=== PATIENT | male | born 1945 | race Caucasian/White ===

== ENCOUNTER 2023-10-04 08:42 | Emergency (ER) | payer MEDICARE ==
[~2023-10-04] VITALS: Wt 99.8 kg
[2023-10-04] MEDS ORDERED: HEPARIN SODIUM 250 ML IV SCH (08:50)
[2023-10-04] MEDS ORDERED: Clopidogrel Hydrogen Sulfate 75 MG TAB PO ONE (08:50)
[2023-10-04 09:03] LABS: BASO % 0.3 % (0.0-1.0); EOS # 0.2 10*3/uL (0.0-0.4); EOS % 1.4 % (1.0-4.0); HEMATOCRIT 43.9 % (42.0-52.0); LYMPH # 4.6 10*3/uL (1.3-4.4); LYMPH % 40.2 % (27.0-41.0); MEAN CELL VOLUME 103.8 fl (80.0-94.0); MEAN CORPUSCULAR HGB 33.1 pg (27.0-31.0); MEAN CORPUSCULAR HGB CONC 31.9 g/dl (33.0-37.0); MEAN PLATELET VOLUME 11.4 fl (9.6-12.3); MONO # 0.9 10*3/uL (0.1-1.0); MONO % 7.7 % (3.0-9.0); NEUT # 5.7 10*3/uL (2.3-7.9); NEUT % 50.1 % (47.0-73.0); NUCLEATED RED BLOOD CELL 0.1 10*3/uL (0.0-0.0); NUCLEATED RED BLOOD CELL 0.6 % (0.0-0.0); PLATELET COUNT AUTOMATED 194 10*3/uL (130-400); RED BLOOD COUNT 4.23 10*6/uL (4.50-5.90); RED CELL DISTRI WIDTH 13.9 % (0-14.5); WHITE BLOOD COUNT 11.4 10*3/uL (4.8-10.8)
[2023-10-04] MEDS ORDERED: OSTEO BI-FLEX1 EACH PO (09:06)
[2023-10-04] MEDS ORDERED: ALLOPURINOL300 MG PO (09:06)
[2023-10-04] MEDS ORDERED: ASPIRIN81 M1 PO (09:06)
[2023-10-04] MEDS ORDERED: ZETIA10 MG PO (09:06)
[2023-10-04] MEDS ORDERED: LANTUS100 UNIT/1 SC (09:07)
[2023-10-04] MEDS ORDERED: HUMALOG100 UNIT/2 SQ (09:07)
[2023-10-04] MEDS ORDERED: LISINOPRIL40 MG PO (09:07)
[2023-10-04] MEDS ORDERED: PRILOSEC20 M1 PO (09:08)
[2023-10-04] MEDS ORDERED: SIMVASTATIN20 MG PO (09:08)
[2023-10-04] MEDS ORDERED: Lopressor25 MG PO (09:08)
[2023-10-04 09:15] LABS: ACT PARTIAL THROMBO TIME 24.4 SECONDS (20.0-32.1)
[2023-10-04 09:25] LABS: POTASSIUM 4.6 mmol/L (3.4-5.1)
[2023-10-04] MEDS ORDERED: SODIUM CHLORIDE 0.9% 1,000 ML IV ONE (10:06)
== END 2023-10-04 09:59 | disposition short-term general hospital (02) ==
LOC: ED 08:42
PROVIDERS: Internal Medicine
DX: I21.3 ST elevation (STEMI) myocardial infarction of unspecified site (principal); I25.2 Old myocardial infarction